=== PATIENT | female | born 1990 | race Caucasian/White ===

== ENCOUNTER 2017-05-21 11:04 | Emergency (ER) | payer OTHER ==
[2017-05-21 11:22] VITALS: BP 148/91
[2017-05-21] MEDS ORDERED: KETOROLAC TROMETHAMINE 60 MG/2 ML VIAL IM ONE (11:29)
--- NOTE | 2017-05-21 11:32 | ED Physician Documentation ---
Sore Throat/Dental Pain - HISTORIAN Historian: patient - HPI Stated Complaint: Lt sided dental pain Chief Complaint: Dental Pain Onset: days ago Context: Abscess Worsened By: nothing Further Comments: yes (26 year old female patient presents with complaint of left lower jaw pain and swelling. States "my wisdom tooth is trying to come in ". States pain started a few days ago and has become worse.) - ROS CONST: no problems CVS/RESP: none GI/: denies: nausea, vomiting NEURO/PSYCH: none - PAST HX Past History: other (breast feeding) Other History: denies: none Allergies/Adverse Reactions: Allergies Allergy/AdvReac Type Severity Reaction Status Date / Time No Known Allergies Allergy Verified 05/21/17 11:10 Home Medications: Ambulatory Orders Medication Instructions Recorded Penicillin V Potassium [Pen V K] 500 mg PO QID #40 tablet 05/21/17 - SOCIAL HX Smoking History: non-smoker - FAMILY HX Family History: No - VITAL SIGNS Vital Signs: Vital Signs Temp Pulse Resp BP Pulse Ox 98.3 F 86 19 148/91 97 05/21/17 11:04 05/21/17 11:04 05/21/17 11:04 05/21/17 11:04 05/21/17 11:04 - REVIEWED ASSESSMENTS Nursing Assessment Reviewed: Yes Vitals Reviewed: Yes ED Results Lab/Radiology - Orders Orders: ED Orders Category Date Time Status Ketorolac Tromethamine [Toradol] Med 05/21/17 11:29 Once 60 mg IM NOW ONE Dental Pain Physical Exam - EXAM General Appearance: mild distress Mouth/Throat: lips nml, pharynx nml, voice nml, no drooling, no air way problems , no thrush, membranes nml, other (left back wisdom tooth impacted with edema and erythema noted. edema noted along left lower jaw line) Respiratory: no resp. distress CVS: reg. rate & rhythm, heart sounds nml Skin: normal color, warm/dry, NR, INT, PAL, DR Neuro/Psych: No: weakness Discharge Clincal Impression: Dental abscess Prescriptions: Penicillin V Potassium [Pen V K] 500 mg PO QID #40 tablet Referrals: Primary Doctor,No [Primary Care Provider] - 2 Days Additional Instructions: Ibuprofen 800mg every 8 hours x 3 days Tylenol 650-1000mg every 4 hours as needed for pain, limit your dose to 4G in 24 hours. 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 See your dentist as soon as possible Condition: Stable Disposition: 01 HOME, SELF-CARE Decision to Admit: NO Decision Time: 11:32
== END 2017-05-21 11:37 | disposition home or self-care (01) ==
LOC: ED 11:04
DX: K04.7 Periapical abscess without sinus (principal)
CPT/HCPCS: 96372; 99282; 99283

== ENCOUNTER 2018-08-19 09:49 | Emergency (ER) | payer OTHER ==
--- NOTE | 2018-08-19 11:30 | ED Physician Documentation ---
Foot Injury - HISTORIAN Historian: patient - HPI Stated Complaint: slammed right foot in door Chief Complaint: Foot Injury (Right Foot) Additional Information: Patient is a 27-year-old female who presents to the ER with friend. Patient states that she accidentally slammed her right foot in the door at home. She is able to bare weight but it is uncomfortable- she denies any pain above the foot. No edema or deformity noted. Onset: hours (Approx. an hour [employer]) Where: home Severity: mild Context: barefoot, other (slammed foot in door at home) Associated Symptoms:: unable to bear weight (difficulty bearing weight) Further Comments: no - ROS CONST: no problems CVS/RESP: none NEURO: denies: headache, dizziness GI/: denies: nausea, vomiting MS/SKIN/LYMPH: denies: foot swelling LNMP: 08/19/18 - PAST HX Past History: none Immunizations: UTD Allergies/Adverse Reactions: Allergies Allergy/AdvReac Type Severity Reaction Status Date / Time No Known Allergies Allergy Verified 08/19/18 10:12 Home Medications: Ambulatory Orders Medication Instructions Recorded NK 08/19/18 - SOCIAL HX Smoking History: less than 1 pack/day Alcohol Use: occasionally Drug Use: none - FAMILY HX Family History: none - VITAL SIGNS Vital Signs: Vital Signs Temp Pulse Resp BP Pulse Ox 97.6 F 101 H 14 148/94 97 08/19/18 09:58 08/19/18 09:58 08/19/18 09:58 08/19/18 09:58 08/19/18 09:58 - REVIEWED ASSESSMENTS Nursing Assessment Reviewed: Yes Vitals Reviewed: Yes ED Results Lab/Radiology - Radiology Radiology Impressions: Examination: Plain film right foot History: PAIN IN MEDIAL RT FOOT AFTER SLAMMING DOOR ON FOOT TODAY Findings: 3 views of the right foot demonstrates normal cortical margins. No fracture or dislocation. No soft tissue swelling. No joint effusion. Impression: No acute osseous process. Electronically signed on Aug 19, 2018 10:48:39 AM CDT by: Jared Rios - Orders Orders: ED Orders Category Date Time Status FOOT 3 VIEWS OR MORE [RAD] Stat Exams 08/19/18 Taken Foot Injury Physical Exam - Physical Exam General Appearance: no acute distress, alert Foot: right foot: normal inspection, normal range of motion, pain, soft tissue tenderness Gait: normal Neuro: sensation nml, motor nml Vascular: no vascular compromise Tendons: tendon function nml Leg/Knee/Thigh: uninjured above ankle Skin: intact, warm, dry Head/ENT: nml inspection Neck/Back: nml inspection Resp/CVS: breath sounds nml, heart sounds nml Discharge Clincal Impression: Right foot sprain Referrals: Primary Doctor,No [Primary Care Provider] - 2 Days Additional Instructions: Use brittani wrap Rest, Ice, Compression, Elevate Follow up with PCP next Condition: Good Disposition: 01 HOME, SELF-CARE Decision to Admit: NO Decision Time: 11:38
[2018-08-19 11:40] VITALS: BP 120/76
--- NOTE | 2018-08-20 05:33 | Diagnostic Imaging Report ---
CYNTHIA DIETZ ED [facility] [address] [facility] [address] Report Submission Date: Aug 19, 2018 10:48:39 AM CDT Patient Study Name: JAVID BROWN Date: Aug 19, 2018 10:17:06 AM CDT Modality Type: DX Gender: F Description: FOOT 3 VIEWS OR MORE : 89 Institution: [facility] Physician: CYNTHIA DIETZ ED Examination: Plain film right foot History: PAIN IN MEDIAL RT FOOT AFTER SLAMMING DOOR ON FOOT TODAY Findings: 3 views of the right foot demonstrates normal cortical margins. No fracture or dislocation. No soft tissue swelling. No joint effusion. Impression: No acute osseous process. Electronically signed on Aug 19, 2018 10:48:39 AM CDT by: Jared BURRELL
== END 2018-08-19 11:36 | disposition home or self-care (01) ==
LOC: ED 09:49
DX: S93.601A Unspecified sprain of right foot, initial encounter (principal); W23.0XXA Caught, crushed, jammed, or pinched between moving objects, initial encounter; Y93.89 Activity, other specified; Y92.810 Car as the place of occurrence of the external cause
CPT/HCPCS: 29540; 73630; 99282; 99283

== ENCOUNTER 2019-02-18 08:53 | Emergency (ER) | payer SELFPAY ==
[2019-02-18] MEDS ORDERED: DIPH,PERTUSS(ACELL),TET VAC/PF 0.5 ML DISP.SYRIN IM ONE (09:20)
[2019-02-18] MEDS ORDERED: HYDROcodone /APAP 5/325 1 EACH TABLET ONE (09:20)
--- NOTE | 2019-03-10 10:00 | Diagnostic Imaging Report ---
LAYO GONZALEZ [facility] [address] [facility] [address] [place] [address]. [id number] Report Submission Date: Feb 18, 2019 10:09:07 AM CDT Patient Study Name: JAVID BROWN Date: Feb 18, 2019 9:40:57 AM CDT Modality Type: DX Gender: F Description: TIBIA FIBULA 2 VIEW : 89 Institution: [facility] Physician: LAYO GONZALEZ Exam: Right leg. History: Fall. AP and lateral view of the right leg are submitted. Spur off the medial head of the fibula is noted. No other signs of fracture or dislocation is seen. No bony erosions are identified. Impression: Spur off the head of the fibula. No acute fracture. Electronically signed on Feb 18, 2019 10:09:07 AM CDT by: Leoncio BURRELL
--- NOTE | 2019-03-10 10:01 | Diagnostic Imaging Report ---
LAYO GONZALEZ [facility] [address] [facility] [address] [address] Report Submission Date: Feb 18, 2019 10:09:51 AM CDT Patient Study Name: JAVID BROWN Date: Feb 18, 2019 9:42:32 AM CDT Modality Type: DX Gender: F Description: ANKLE 3 VIEWS OR MORE : 89 Institution: [facility] Physician: LAYO GONZALEZ Exam: Right ankle. History: Pain. AP, lateral and mortise view of the right ankle are submitted. No signs of acute fracture or dislocation is seen. Ankle mortise is adequately maintained. No other soft tissue abnormalities are identified. Impression: No bony abnormality. Electronically signed on Feb 18, 2019 10:09:51 AM CDT by: Leoncio BURRELL
== END 2019-02-18 10:26 | disposition home or self-care (01) ==
LOC: ED 08:53
DX: S80.11XA Contusion of right lower leg, initial encounter (principal); W22.8XXA Striking against or struck by other objects, initial encounter
CPT/HCPCS: 73590; 73610; 90471; 90715; 99283; 99284; A9270

== ENCOUNTER 2019-02-23 07:40 | Emergency (ER) | payer OTHER ==
--- NOTE | 2019-03-10 11:01 | Diagnostic Imaging Report ---
CYNTHIA DIETZ ED [facility] [address] [address] Report Submission Date: Feb 23, 2019 8:14:59 AM CDT Patient Study Name: JAVID BROWN Date: Feb 23, 2019 7:50:17 AM CDT Modality Type: DX Gender: F Description: FOOT 3 VIEWS OR MORE : 89 Institution: [facility] Physician: CYNTHIA DIETZ ED Examination: Plain film right foot History: RIGHT FOOT PAIN X 2 WEEKS Findings: 3 views of the right foot demonstrates normal cortical margins. No fracture or dislocation. No soft tissue swelling. No joint effusion. Impression: No acute osseous process. Electronically signed on Feb 23, 2019 8:14:59 AM CDT by: Jared BURRELL
== END 2019-02-23 08:28 | disposition home or self-care (01) ==
LOC: ED 07:40
DX: S90.31XA Contusion of right foot, initial encounter (principal); W17.2XXA Fall into hole, initial encounter
CPT/HCPCS: 73630; 99282